=== PATIENT | female | born 1950 | race Caucasian/White ===

== ENCOUNTER → 2016-12-14 | Outpatient (CLI) | payer MEDICARE ==
--- NOTE | 2016-12-15 10:56 | MM ---
Reason for exam: screening (asymptomatic). Last mammogram was performed 12 years and 4 months ago. History: Patient is postmenopausal. Physical Findings: A clinical breast exam by your physician is recommended on an annual basis and results should be correlated with mammographic findings. MG 3D Screening Mammo W/Cad Bilateral CC and MLO view(s) were taken. No prior studies available for comparison. The breast tissue is heterogeneously dense. This may lower the sensitivity of mammography. Finding: There are typically benign round calcifications. No discrete abnormality. ASSESSMENT: Benign, BI-RAD 2 RECOMMENDATION: Routine screening mammogram of both breasts in 1 year.
== END | disposition home or self-care (01) ==
LOC: RADMAMWWP 08:55
PROVIDERS: ATTEND Family Medicine
DX: Z12.31 Encounter for screening mammogram for malignant neoplasm of breast (principal)
CPT/HCPCS: 77063; G0202

== ENCOUNTER → 2018-05-01 | Outpatient (CLI) | payer MEDICARE, OTHER ==
--- NOTE | 2018-05-02 13:35 | MM ---
Reason for exam: screening (asymptomatic). Last mammogram was performed 1 year and 5 months ago. History: Patient is postmenopausal. Physical Findings: A clinical breast exam by your physician is recommended on an annual basis and results should be correlated with mammographic findings. MG 3D Screening Mammo W/Cad Bilateral CC and MLO view(s) were taken. Prior study comparison: December 14, 2016, bilateral MG 3d screening mammo w/cad. August 04, 2004, bilateral screening mammogram. The breast tissue is heterogeneously dense. This may lower the sensitivity of mammography. Finding: There are typically benign vascular, round, linear calcifications. There is no discrete abnormality. ASSESSMENT: Benign, BI-RAD 2 RECOMMENDATION: Routine screening mammogram of both breasts in 1 year.
== END | disposition home or self-care (01) ==
LOC: RADMAMWWP 08:36
PROVIDERS: ATTEND Family Medicine
DX: Z12.31 Encounter for screening mammogram for malignant neoplasm of breast (principal)
CPT/HCPCS: 77063; 77067

== ENCOUNTER → 2019-06-21 | Outpatient (CLI) | payer MEDICARE ==
--- NOTE | 2019-06-25 10:51 | MM ---
Reason for exam: screening (asymptomatic). Last mammogram was performed 1 year and 2 months ago. History: Patient is postmenopausal. Physical Findings: A clinical breast exam by your physician is recommended on an annual basis and results should be correlated with mammographic findings. MG 3D Screening Mammo W/Cad Bilateral CC and MLO view(s) were taken. Prior study comparison: May 01, 2018, bilateral MG 3d screening mammo w/cad. December 14, 2016, bilateral MG 3d screening mammo w/cad. The breast tissue is heterogeneously dense. This may lower the sensitivity of mammography. Finding: There are typically benign vascular, round, linear calcifications. There is a chronic nodularity in the left breast. There is no discrete abnormality. ASSESSMENT: Benign, BI-RAD 2 RECOMMENDATION: Routine screening mammogram of both breasts in 1 year.
== END | disposition home or self-care (01) ==
LOC: RADMAMWWP 10:03
PROVIDERS: ATTEND Family Medicine
DX: Z12.31 Encounter for screening mammogram for malignant neoplasm of breast (principal)
CPT/HCPCS: 77063; 77067

== ENCOUNTER → 2019-07-04 | Outpatient (CLI) | payer MEDICARE ==
--- NOTE | 2019-07-05 05:05 | XR ---
EXAMINATION TYPE: XR wrist complete RT DATE OF EXAM: 07/04/2019 COMPARISON: NONE HISTORY: 68-year-old female right wrist and hand pain TECHNIQUE: 3 views FINDINGS: Mild degenerative change with marginal spurring at the first CMC joint. Severe joint space narrowing with pdfr-po-mydy articulation at the triscaphe joint. Additional moderate to advanced degenerative c hange at the first and third MCP joints with loss of joint space and joint subluxations. The radiocar pal and distal radioulnar joint as well as the midcarpal compartment otherwise appear intact. Some ul jacklyn-sided soft tissue swelling. IMPRESSION: 1. 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 2. Additional moderate degenerative change at the first and third MCP joints. 3. Ulnar-sided soft tissue swelling.
== END | disposition home or self-care (01) ==
LOC: RADXRYALE 15:59
PROVIDERS: ATTEND Physician Assistant Medical
DX: M18.11 Unilateral primary osteoarthritis of first carpometacarpal joint, right hand (principal); M19.041 Primary osteoarthritis, right hand

== ENCOUNTER 2020-08-17 10:11 | Day surgery (SDC) | payer MEDICARE ==
[~2020-08-17 10:11] MED LIST: LACTATED RINGERS 1,000 ML IV SCH
[2020-08-17] MEDS ORDERED: LIDOCAINE 1% (10MG/ML) FOR IV START INTRADERMA ONE (10:40)
[2020-08-17 10:42] VITALS: TEMP 97.9
[2020-08-17 10:49] LABS: Glucose,Whole Blood 209 mg/dL (75-99)
[2020-08-17] MEDS ORDERED: PROPOFOL 10 MG/ML 20 ML VIAL IV ONE (11:30)
--- NOTE | 2020-08-17 11:46 | P.PCN ---
Date of Procedure: 08/17/20 Procedure(s) Performed: BRIEF HISTORY: Patient is a 69-year-old pleasant white female scheduled for an elective colonoscopy as a part of positive cologuard. PROCEDURE PERFORMED: Colonoscopy. PREOPERATIVE DIAGNOSIS:Positive cologuard. IV sedation per Anesthesia. PROCEDURE: After informed consent was obtained, the patient, was brought into the endoscopy unit. IV sedation was administered by Anesthesia under continuous monitoring. Digital rectal examination was normal. Initially the Olympus CF-160 flexible video colonoscope was then inserted in the rectum, gradually advanced into the cecum without any difficulty. Careful examination was performed as the scope was gradually being withdrawn. Ileocecal valve and the appendiceal orifice were visualized and appeared normal. Prep was excellent. Mucosa of the cecum, ascending colon, transverse colon, descending colon, sigmoid colon, and rectum appeared normal. Retroflexion was performed in the rectum and no lesions were seen. The patient tolerated the procedure well. IMPRESSION: Normal-appearing colon from rectum to cecum with no evidence of colorectal neoplasia . RECOMMENDATIONS: Findings of this examination were discussed with the patient as well as a family. She was advised to have a repeat screening colonoscopy in 10 years.].
[2020-08-17 11:49] VITALS: RESP 16
[2020-08-17 12:04] VITALS: BP 133/78; PULSE 79
== END 2020-08-17 12:19 | disposition home or self-care (01) ==
LOC: ORWHC2ENDO 10:11
PROVIDERS: ATTEND Internal Medicine Gastroenterology
DX: R19.5 Other fecal abnormalities (principal); I10 Essential (primary) hypertension; E78.5 Hyperlipidemia, unspecified; E11.9 Type 2 diabetes mellitus without complications; M19.90 Unspecified osteoarthritis, unspecified site; Z88.5 Allergy status to narcotic agent; Z79.82 Long term (current) use of aspirin; Z79.84 Long term (current) use of oral hypoglycemic drugs; Z79.899 Other long term (current) drug therapy
CPT/HCPCS: 45378; J2704

== ENCOUNTER → 2020-08-26 | Outpatient (CLI) | payer MEDICARE ==
--- NOTE | 2020-08-27 10:43 | MM ---
Reason for exam: screening (asymptomatic). Last mammogram was performed 1 year and 2 months ago. History: Patient is postmenopausal. Physical Findings: A clinical breast exam by your physician is recommended on an annual basis and results should be correlated with mammographic findings. MG 3D Screening Mammo W/Cad Bilateral CC and MLO view(s) were taken. Prior study comparison: June 21, 2019, bilateral MG 3d screening mammo w/cad. May 01, 2018, bilateral MG 3d screening mammo w/cad. The breast tissue is heterogeneously dense. This may lower the sensitivity of mammography. Finding: There are typically benign vascular, round, linear calcifications. There is no discrete abnormality. ASSESSMENT: Benign, BI-RAD 2 RECOMMENDATION: Routine screening mammogram of both breasts in 1 year.
== END | disposition home or self-care (01) ==
LOC: RADMAMWWP 13:22
PROVIDERS: ATTEND Family Medicine
DX: Z12.31 Encounter for screening mammogram for malignant neoplasm of breast (principal)
CPT/HCPCS: 77063; 77067

== ENCOUNTER → 2021-07-14 | Outpatient (CLI) | payer MEDICARE ==
--- NOTE | 2021-07-14 10:44 | BD ---
EXAMINATION TYPE: Axial Bone Density DATE OF EXAM: 07/14/2021 COMPARISON: NONE CLINICAL HISTORY: Height: 5 FT 3 IN Weight: 170 FRAX RISK QUESTIONS: Alcohol (3 or more units per day): NO Family History (Parent hip fracture): YES Glucocorticoids (More than 3mos): NO (Ex: prednisone, prednisolone, methylprednisolone, dexamethasone, and hydrocortisone). History of Fracture in Adulthood: YES Secondary Osteoporosis: 1. Type 1 Diabetes: NO 2. Hyperthyroidism: NO 3. Menopause before 45: NO 4. Malnutrition: NO 5. Chronic liver disease: NO Rheumatoid Arthritis: NO Current Tobacco Use: NO RISK FACTORS HISTORY OF: Surgery to Spine/Hip(right/left)/Wrist (right/left): NO Family History of Osteoporosis: YES Active: YES Diet low in dairy products/other sources of calcium: NO Postmenopausal woman: AGE 53 Take estrogen and/or progesterone medications: NO Lost more than 2 inches in height since high school: NO MEDICATIONS: Additional Medications: REBEL SIS,METFORMIN, BLOOD PRESSURE MEDS, CHOLESTEROL MEDS , ANTI DEPRESSANT Additional History: EXAM MEASUREMENTS: Bone mineral densitometry was performed using the [employer] System. Bone mineral density as measured about the Lumbar spine is: ----- L1-L4(G/cm2): 1.444 T Score Values are as follows: ----- L2: 3.3 ----- L3: 3.3 ----- L4: 1.1 ----- L1-L4: 2.2 BASELINE Bone mineral density about the R hip (g/cm2): 0.900 Bone mineral density about the L hip (g/cm2): 0.800 T Score values are as follows: -----R Neck: -1.0 -----L Neck: -1.7 -----R Total: -1.1 -----L Total: -1.1 BASELINE IMPRESSION: Osteopenia NOTE: T-SCORE=SD OF THE YOUNG ADULT MEAN.
== END | disposition home or self-care (01) ==
LOC: RADMAMWWP 08:51
PROVIDERS: ATTEND Family Medicine
DX: Z12.31 Encounter for screening mammogram for malignant neoplasm of breast (principal); M85.80 Other specified disorders of bone density and structure, unspecified site
CPT/HCPCS: 77080

== ENCOUNTER → 2021-08-31 | Outpatient (CLI) | payer MEDICARE ==
--- NOTE | 2021-09-02 13:53 | MM ---
Reason for exam: screening (asymptomatic). Last mammogram was performed 1 year ago. History: Patient is postmenopausal. Physical Findings: A clinical breast exam by your physician is recommended on an annual basis and results should be correlated with mammographic findings. MG 3D Screening Mammo W/Cad Bilateral CC and MLO view(s) were taken. Prior study comparison: August 26, 2020, bilateral MG 3d screening mammo w/cad. June 21, 2019, bilateral MG 3d screening mammo w/cad. There are scattered fibroglandular densities. Asymmetry central right CC view is unchanged. No significant changes when compared with prior studies. ASSESSMENT: Benign, BI-RAD 2 RECOMMENDATION: Routine screening mammogram of both breasts in 1 year.
== END | disposition home or self-care (01) ==
LOC: RADMAMWWP 12:27
PROVIDERS: ATTEND Family Medicine
DX: Z12.31 Encounter for screening mammogram for malignant neoplasm of breast (principal)
CPT/HCPCS: 77063; 77067

== ENCOUNTER → 2022-07-29 | Outpatient (CLI) | payer MEDICARE ==
--- NOTE | 2022-07-29 10:35 | XR ---
EXAMINATION TYPE: XR lumbosacral spine 5 views, XR Hip Complete 2 views RT DATE OF EXAM: 07/29/2022 Comparison: None Clinical History: 71-year-old female [id number] RT SCIATICA, RT HIP PAIN Findings: LUMBAR SPINE: Moderate to advanced degenerative disc disease throughout the lumbar spine with a desiccated and narr owed disks and endplate spondylosis. Vertebral body heights are preserved and alignment is maintained . Hypertrophic facet arthropathy greatest in the mid and lower lumbar spine. No pars interarticularis defect identified. Slight degenerated levoconvex curvature centered along the upper lumbar spine. Po ssible right renal calculi measuring up to 9 mm. RIGHT HIP: There is severe degenerative change at the right hip with complete loss of superolateral cartilage an d joint space, jlqx-gu-paid abutment, extensive subchondral sclerosis and cystic change as well as ma rginal spurring. No acute fracture, subluxation, or dislocation. IMPRESSION: 1. Lumbar spine: Moderate to advanced degenerative disc disease throughout. Hypertrophic facet arthro kim mid to lower lumbar spine. No vertebral compression collapse or malalignment. Possible right re nal calculi measuring up to 9 mm. 2. Right hip: End stage, [id number] right hip OA.
== END | disposition home or self-care (01) ==
LOC: RADXRYALE 09:38
PROVIDERS: ATTEND Physician Assistant Medical
DX: M25.551 Pain in right hip (principal); M54.31 Sciatica, right side; M51.36 Other intervertebral disc degeneration, lumbar region; M16.11 Unilateral primary osteoarthritis, right hip
CPT/HCPCS: 72110; 73502

== ENCOUNTER → 2022-09-01 | Outpatient (CLI) | payer MEDICARE ==
--- NOTE | 2022-09-02 09:52 | MM ---
Reason for Exam: Screening (asymptomatic). Last screening mammogram was performed 12 month(s) ago. Patient History: Menarche at age 10. First Full-Term at age 18. Postmenopausal. Risk Values: Stormy 5 year model risk: 1.6%. NCI Lifetime model risk: 3.9%. Prior Study Comparison: 06/21/2019 Bilateral Screening Mammogram, [facility]. 08/26/2020 Bilateral Screening Mammogram, [facility]. 08/31/2021 Bilateral Screening Mammogram, [facility]. Tissue Density: The breast tissue is heterogeneously dense. This may lower the sensitivity of mammography. Findings: Analyzed By CAD. Benign-appearing calcifications. There is no suspicious group of microcalcifications or new suspicious mass in either breast. Overall Assessment: Benign, BI-RAD 2 Management: Screening Mammogram of both breasts in 1 year. A clinical breast exam by your physician is recommended on an annual basis and results should be correlated with mammographic findings. [facility] will attempt to contact patient to return for supplemental views and ultrasound if indicated. Electronically signed and approved by: Isael Vargas DO
== END | disposition home or self-care (01) ==
LOC: RADMAMWWP 09:54
PROVIDERS: ATTEND Family Medicine
DX: Z12.31 Encounter for screening mammogram for malignant neoplasm of breast (principal); Z78.0 Asymptomatic menopausal state
CPT/HCPCS: 77063; 77067

== ENCOUNTER → 2022-09-21 | Outpatient (CLI) | payer MEDICARE ==
[2022-09-21 12:47] LABS: Partial Thromboplastin Time 24.5 sec (22.0-30.0)
[2022-09-21 17:20] LABS: INR 0.9 (<1.2); Prothrombin Time 9.6 sec (9.0-12.0)
[2022-09-21 18:44] LABS: Basophils # (A) 0.08 X 10*3/uL (0.00-0.10); Basophils % (A) 1.1 %; Eosinophils # (A) 0.18 X 10*3/uL (0.04-0.35); Eosinophils % (A) 2.4 %; HCT 42.3 % (37.2-46.3); HGB 13.7 g/dL (12.0-15.0); Immature Grans, Automated 0.3 %; MCH 30.1 pg (27.0-32.0); MCHC 32.4 g/dL (32.0-37.0); Mean Platelet Volume 11.6 fL (9.5-12.2); Monocytes # (A) 0.59 X 10*3/uL (0.20-1.00); NRBC Per 100 WBC 0 /100 WBCS (0.0-0.0); Neutrophils # (A) 4.82 X 10*3/uL (1.80-7.70); Neutrophils % (A) 65.2 %; Platelet Count 321 X 10*3/uL (140-440); RBC 4.55 X 10*6/uL (4.10-5.20); RDW 11.9 % (11.5-14.5); WBC 7.39 X 10*3/uL (4.50-10.00)
[2022-09-21 21:05] LABS: Appearance,Urine Cloudy (Clear); Bilirubin,Urine Negative (Negative); Blood,Urine Negative (Negative); Color,Urine Yellow (Yellow); Ketones,Urine Negative (Negative); Nitrite,Urine Positive (Negative); PH, Urine 7.5 (5.0-8.0); Specific Gravity,Urine 1.006 (1.001-1.030); Urobilinogen,Urine 0.2 (0.2,1.0)
[2022-09-21 21:15] LABS: Bacteria,Urine 4+ /HPF (None Seen)
[2022-09-21 22:02] LABS: African American GFR (CKD) 85.3 (60.0-200.0); Albumin 4.9 g/dL (3.8-4.9); Albumin/Globulin Ratio 2.34 (1.60-3.17); Anion Gap 14.9 mmol/L (10.00-18.00); BUN/Creat Ratio 12.69 Ratio (12.00-20.00); Blood Urea Nitrogen 10.1 mg/dL (9.0-27.0); Calcium 10.3 mg/dL (8.7-10.3); Carbon Dioxide 26.2 mmol/L (20.0-27.5); Globulin 2.1 g/dL (1.6-3.3); Non-African American GFR(CKD) 73.6 (60.0-200.0); Potassium 5.1 mmol/L (3.5-5.5); Total Bilirubin 0.4 mg/dL (0.30-1.20)
== END | disposition home or self-care (01) ==
LOC: LABPAT 11:15
PROVIDERS: ATTEND Orthopaedic Surgery
DX: Z01.812 Encounter for preprocedural laboratory examination (principal)
CPT/HCPCS: 80053; 81001; 85025; 85610; 85730; 87070

== ENCOUNTER 2022-10-03 05:34 | Day surgery (SDC) | payer MEDICARE ==
[~2022-10-03 05:34] MED LIST changes: +ACETAMINOPHEN TAB 500 MG TAB PO PRN; +GABAPENTIN 300 MG CAP PO PRN; -LACTATED RINGERS 1,000 ML IV SCH; +MELOXICAM 7.5 MG TAB PO PRN; +TRANEXAMIC ACID IN NACL,ISO-OS 1,000 MG in SALINE 1 100ML.BAG IVPB PRN
[2022-10-03] MEDS ORDERED: LACTATED RINGERS 1,000 ML IV ONE ×2 (05:59→09:48)
[2022-10-03] MEDS ORDERED: LIDOCAINE 1% (10MG/ML) FOR IV START INTRADERMA PRN (06:00)
[2022-10-03] MEDS ORDERED: ONDANSETRON 4 MG/2 ML VIAL IVP ONE (06:00)
[2022-10-03] MEDS ORDERED: MIDAZOLAM 2 MG/2 ML VIAL IV PRN (06:00)
[2022-10-03] MEDS ORDERED: HYDROmorphone 0.5 MG/0.5 ML SYRINGE IVP PRN ×3 (06:00→08:26)
[2022-10-03] MEDS ORDERED: DEXAMETHASONE SOD PHOSPHATE 4 MG/ML 1 ML VIAL IV ONE (06:00)
[2022-10-03 06:29] LABS: Glucose,Whole Blood 143 mg/dL (70-110)
[2022-10-03] MEDS ORDERED: TRANEXAMIC ACID IN NACL,ISO-OS 1,000 MG/100 ML BAG ONE (06:54)
[2022-10-03] MEDS ORDERED: PROPOFOL 10 MG/ML 20 ML VIAL IV ONE (06:54)
[2022-10-03] MEDS ORDERED: ePHEDrine 50 MG/ML 1 ML VIAL ONE (06:54)
[2022-10-03] MEDS ORDERED: MIDAZOLAM 2 MG/2 ML VIAL ONE (06:54)
[2022-10-03] MEDS ORDERED: PHENYLEPHRINE-0.9% NACL SYG 1,000 MCG/10 ML SYRINGE ONE (06:54)
[2022-10-03] MEDS ORDERED: fentaNYL (PF) 50 MCG/ML 2 ML AMP ONE (06:54)
[2022-10-03] MEDS ORDERED: ceFAZolin 1,000 MG in SODIUM CHLORIDE 0.9% 1,000 ML IRRIGATION ONE (06:59)
[2022-10-03] MEDS ORDERED: ROPIVACAINE 5 MG/ML 30 ML VIAL MISCELLANE ONE ×2 (07:05→08:02)
--- NOTE | 2022-10-03 08:10 | P.OP ---
Date of Procedure: 10/03/22 Preoperative Diagnosis: Severe Osteoarthritis right hip Postoperative Diagnosis: Severe osteoarthritis right hip Procedure(s) Performed: Right total hip arthroplasty with a direct anterior approach Implants: [employer] Polarstem standard size 2 [employer] R3, 3 hole hemispherical acetabular shell, 48 mm [employer] Reflection 6.5 mm cancellus screw, 20 mm, 25 mm [employer] R3, XLPE 20 acetabular liner [employer] Oxinium femoral head 32 m, +0 All components were press-fit. The articulation is Oxinium on polyethylene. Anesthesia: spinal Surgeon: Gerald Christian Filling Carrier #1: Kacy Grande Estimated Blood Loss (ml): 400 Pathology: other (Femoral head) Condition: stable Disposition: PACU Indications for Procedure: After failure of conservative treatment we discussed the surgical and nonsu rgical treatment options at length. Patient wishes to proceed with a total hip arthroplasty with a direct anterior approach. Complications specific to this procedure were discussed at length, including but not limited to infection, leg length discrepancy, dislocation, nerve injury, and fracture. Covid-19 was also discussed at length with the patient, and they are aware of the current policies and procedures. The patient was given the option of delaying surgery, but they elect to proceed knowing these risks. Patient is aware of all these complications and informed consent was obtained Operative Findings: The operative findings are consistent with severe osteoarthritis of the right hip Description of Procedure: Patient was seen and evaluated in the preoperative area and the consent was reviewed. The operative site was marked with a skin marker. The patient was then brought to the operating room and given preoperative antibiotics intravenously. 1 g of Tranexamic acid was also given intravenously. A spinal anesthetic was administered by the anesthesia department. The patient was then placed on the [place] table with the bony prominences well-padded. The hip area was then prepped with a ChloraPrep solution and draped in the usual sterile fashion. A universal timeout was then performed, which confirmed the patient's name, surgical site, ALLERGIES, and procedure being performed on the consent. Next the incision site was located at 1 cm distal and 2 cm lateral to the anterior superior iliac spine. The skin and subcutaneous tissues were sharply incised. Incision was carefully dissected down to the fascia overlying the tensor fascia pablito muscle. This fascia was then incised in line with the incision. Care was taken to stay laterally in order to avoid injuring the lateral femoral cutaneous nerve. Next, using blunt finger dissection, the tensor fascia pablito muscle was dissected off its investing fascia. The muscle was then carefully retracted laterally with a cobra retractor over the lateral neck of the femur. Next, the circumflex vessels were identified and cauterized using the AquaMantis device. The anterior hip capsule was then exposed. The capsule was then opened and an inverted T fashion. Cobra retractors were then placed intracapsularly. The retractors were maintained intracapsular throughout the procedure. The proximal femur was then visualized. Fluoroscopic x-rays were then taken in order to evaluate the preoperative leg lengths. A small amount of traction was placed on the leg. The femoral neck was then osteotomized at the appropriate level above the lesser trochanter. A small wedge of bone was then removed from the remaining femoral head. Next, using a corkscrew the femoral head was removed from the acetabulum. On gross visual inspection, the femoral head had complete loss of articular cartilage and multiple periarticular osteophytes. The femoral head was then me asured. Attention was then turned to the acetabulum. The acetabulum was exposed and any remaining labrum was excised. Sequential reaming of the acetabulum was performed using fluoroscopic guidance until there was a good bed of bleeding cancellus bone. When the appropriate size was reached, a trial was then placed. The position and fit of the trial was checked with fluoroscopy. The trial was then removed. Then, using fluoroscopic guidance, the final implant was impacted at 20 of anteversion and 40 of abduction, and fully seated in the acetabulum. 2 screws were then placed in the acetabulum. Again fluoroscopy was used to check position of the screws. Next, the liner was then impacted, with a 20 elevated liner located in the anterior superior quadrant. Component locking was confirmed. Attention was then directed to the femur. With the aid of the [place] table, the femur was externally rotated to approximately 130, extended, and adducted under the opposite leg. A side hook was then placed under the proximal femur, and the side hook elevator was used to elevate the proximal femur while releasing the capsule. Retractors were then placed. A capsular release was performed, as well as a release of the conjoined tendon, which afforded excellent visualization of the proximal femur. Next, a box osteotome was used to lateralize the proximal femur. A teacher of the handicapped was then used to locate the femoral canal. Sequential broaching was then performed with appropriate size which afforded excellent fixation in the proximal femur. A trial was then placed with appropriate head and neck, and the hip was gently reduced with the aid of the [place] table. Fluoroscopy was then used to check position of the components, as well as to evaluate the leg lengths and offset. The leg lengths and offset were measured as closely as possible to ensure stability of the hip. The hip was then gently dislocated and the trials were then removed. Final implants were then impacted and the hip was again reduced. Final fluoroscopic x-rays confirmed that the components were in anatomic position. The leg lengths and offset were measured and were found to coincide with the trial measurements. The hip was also taken through range of motion, and found to be stable. The hip was then copiously irrigated with antibiotic solution with pulsatile lavage. The hip was then irrigated with Irrisept solution. The soft tissues were then injected with a ropivacaine solution. A second dose of 1 g of Tranexamic acid was also given intravenously. The fascia was then closed with 2-0 strata fix suture. The subcutaneous tissue was closed with 3-0 Vicryl. The subcuticular tissue was closed with 3-0 strata fix suture. The skin was then closed with Exofin skin glue. After the glue and dried, and Optifoam silver impregnated dressing was applied. The patient was then transferred to the recovery room in stable condition. The judicial administrative assistant EVIE Marie was required due to the complexity of surgery, and the need for skilled surgical first assistant for positioning, draping, exposure, retraction, and closure of the wound.
[2022-10-03] MEDS ORDERED: MAGNESIUM HYDROXIDE 2,400 MG/10 ML CUP PO PRN (08:26)
[2022-10-03] MEDS ORDERED: ONDANSETRON 4 MG/2 ML VIAL IVP PRN (08:26)
[2022-10-03] MEDS ORDERED: NALOXONE 0.4 MG/ML 1 ML VIAL IV PRN (08:26)
[2022-10-03] MEDS ORDERED: HYDROcodone/APAP 7.5-325MG 1 EACH TAB PO PRN (08:28)
[2022-10-03 09:01] LABS: Glucose,Whole Blood 245 mg/dL (70-110)
--- NOTE | 2022-10-03 09:54 | FL ---
Fluoroscopy INDICATION: Pain FINDINGS: Fluoroscopy time: 55 seconds. Images obtained: 0. IMPRESSIONS: 1. Documentation of fluoroscopy.
--- NOTE | 2022-10-03 09:54 | XR ---
Fluoroscopy INDICATION: Pain FINDINGS: Fluoroscopy time: 55 seconds. Images obtained: 6. IMPRESSIONS: 1. Documentation of fluoroscopy.
--- NOTE | 2022-10-03 09:58 | XR ---
EXAMINATION TYPE: XR Hip Limited RT DATE OF EXAM: 10/03/2022 COMPARISON: 07/29/2022 HISTORY: Post right hip surgery TECHNIQUE: AP right hip FINDINGS: Femoral and acetabular components of the place. No acute fractures are evident post prosthe sis placement. Soft tissue postsurgical changes are evident. IMPRESSION: 1. No acute fracture post right hip replacement.
[2022-10-03] MEDS: HYDROmorphone 0.5 MG/0.5 ML SYRINGE IVP PRN ×3 (10:13→18:24)
[2022-10-03] MEDS ORDERED: LORATADINE 10 MG TAB PO PRN (11:10)
[2022-10-03] MEDS ORDERED: DEXTROSE 50% SYRINGE 50 ML IVP PRN ×2 (11:15)
--- NOTE | 2022-10-03 11:18 | P.CONS ---
History of Present Illness - Reason for Consult Consult date: 10/03/22 Medical management Requesting physician: Gerald Christian - History of Present Illness History of Presenting Illness: Patient is a very pleasant 72-year-old female with a past medical history including hypertension, hyperlipidemia, type II vof-fsozomc-aeyovvily diabetes mellitus, and osteoarthritis. She is currently admitted under orthopedic surgery team status post an elective right total hip arthroplasty secondary to severe osteoarthritis of her right hip. We have been consulted for medical management throughout patient's hospitalization. Patient seen and fully evalua anthony at bedside upon arrival to room from OR. She reports currently in postoperative pain is controlled, but she can feels that it is starting to flare up a bit and states ice pack was just changed out. She denies having any postoperative nausea or vomiting and has yet to urinate since operation was completed. Patient denies having any other pain or complaints at this time including headache, lightheadedness, dizziness, chest pain, palpitations, shortness of breath, abdominal pain, or experiencing any numbness/tingling/weakness in her extremities. Patient denies history of DVT or PE. Review of systems: Pertinent positives and negatives as discussed in HPI, a complete review of systems was performed and all other systems are negative. Physical exam: Vital signs reviewed and stable. General: Nontoxic, no distress and appears stated age. Derm: Skin warm and dry, normal coloration for ethnicity. Postoperative dressing in place to right lateral hip with ice packs covering. Head: Atraumatic, normocephalic and symmetric. Eyes: EOMs intact, no lid lag, and anicteric sclera Mouth: no lip lesions, mucus membranes moist Cardiovascular: regular rate and rhythm with normal S1S2, no murmur, positive posterior tibial pulses bilaterally, and cap refill < 2 seconds. Lungs: Respirations even, regular, and unlabored on room air. Lungs CTA bilaterally, no rhonchi, no rales, no wheezing, and no accessory muscle usage. Abdominal: soft, nontender to palpation, no guarding, no appreciable organomegaly Ext: ROM intact. No gross muscle atrophy, no edema, no contractures Neuro: Speech clear, face symmetrical and CN II-XII grossly intact with no noted focal neuro deficits Psych: Alert and oriented to person, place, time, and situation. Appropriate and pleasant affect. Assessment and Plan of Care: Status post right total hip arthroplasty -Management per primary admitting orthopedic surgery team including DVT prophylaxis, pain management, wound/dressing/drain management, weightbearing, and PT/OT. -Patient currently on DVT prophylaxis with aspirin. Hypertension -Monitor vital signs and continue daily medication regimen with losartan/hydrochlorothiazide. Hyperlipidemia -Continue daily medication regimen with pravastatin 20 mg nightly. -Continue heart healthy and carb consistent diet. Type II [id number] diabetes mellitus -Hold semiglutide and metformin and place patient on glycemic protocol with NovoLog sliding scale to maintain tight glycemic control throughout hospitalization. Thank you for allowing us to participate in the care of this pleasant patient. Do not hesitate to contact us with questions. Someone can be reached from the [facility] hospitalist group all hours of the day at [phone] or via [employer]. Tani Rudolph NP rendered care for this patient independently, reviewed the findings and plan as documented in the note above. I did not physically speak with or examine the patient on this date. Past Medical History Past Medical History: Diabetes Mellitus, Hyperlipidemia, Hypertension, Osteoarthritis (OA) Additional Past Medical History / Comment(s): just finished A/B for UTI ordered by surgeon office History of Any Multi-Drug Resistant Organisms: MRSA Year Discovered:: 2009 MDRO Source:: left upper thigh Past Surgical History: Orthopedic Surgery, Tonsillectomy Additional Past Surgical History / Comment(s): D&C, left thumb basal joint replaced, colonoscopy Past Anesthesia/Blood Transfusion Reactions: No Reported Reaction Past Psychological History: Anxiety, Depression Smoking Status: Never smoker Past Alcohol Use History: None Reported Past Drug Use History: None Reported - Past Family History Mother Family Medical History: No Reported History Medications and Allergies Home Medications Medication Instructions Recorded Confirmed Type Aspirin 325 mg PO DAILY 08/14/20 09/29/22 History Cetirizine HCl [Zyrtec] 10 mg PO DAILY PRN 08/14/20 10/03/22 History Cholecalciferol [Vitamin D3 (25 1,000 unit PO DAILY 08/14/20 09/29/22 History Mcg = 1000 Iu)] Citalopram Hydrobromide 20 mg PO DAILY 08/14/20 10/03/22 History [Citalopram HBr] Ferrous Sulfate [Feosol] 325 mg PO DAILY 08/14/20 09/29/22 History Niacin [Niaspan] 1,000 mg PO DAILY 08/14/20 10/03/22 History Pravastatin Sodium [Pravachol] 20 mg PO HS 08/14/20 10/03/22 History buPROPion HCL [Wellbutrin SR] 75 mg PO BID 08/14/20 09/29/22 History metFORMIN HCL [Glucophage] 1,000 mg PO BID 08/14/20 10/03/22 History Calcium Carbonate/Vitamin D3 1 each PO DAILY 09/29/22 09/29/22 History [Calcium 600 mg-D3 10 Mcg (400 Iu)] Losartan/Hydrochlorothiazide 1 tab PO DAILY 09/29/22 09/29/22 History [Losartan-Hctz 100-12.5 mg Tab] Semaglutide [Rybelsus] 7 mg PO DAILY 09/29/22 10/03/22 History Aspirin 325 mg PO BID #60 tab 10/03/22 Rx HYDROcodone/APAP 7.5-325MG [[place] 1 - 2 tab PO Q6H PRN #32 tab 10/03/22 Rx 7.5-325] Sennosides [Senokot] 2 tab PO DAILY PRN #60 tablet 10/03/22 Rx Allergies Allergy/AdvReac Type Severity Reaction Status Date / Time codeine AdvReac "headache Verified 10/03/22 05:54 and very sleepy" Physical Exam Osteopathic Statement: *. No significant issues noted on an osteopathic structural exam other than those noted in the History and Physical/Consult. Vitals: Vital Signs Temp Pulse Resp BP BP Pulse Ox 10/03/22 09:45 98 16 131/68 99 10/03/22 09:15 96 18 130/59 96 10/03/22 09:00 97 18 124/58 99 10/03/22 08:45 99 18 124/59 98 10/03/22 08:30 100.4 F H 110 H 18 117/59 97 10/03/22 05:57 97.2 F L 86 18 132/66 99 Intake and Output 10/02/22 10/03/22 10/03/22 22:59 06:59 14:59 Intake Total 551 450 Output Total 400 Balance 551 50 Intake: IV 551 450 Output: Estimated Blood Loss 400 Other: Weight 70.1 kg 70.1 kg Results Labs: Abnormal Lab Results - Last 24 Hours (Table) 10/03/22 10/03/22 Range/Units 06:23 09:00 POC Glucose (mg/dL) 143 H 245 H (70-110) mg/dL
[2022-10-03 11:56] LABS: Glucose,Whole Blood 219 mg/dL (70-110)
[2022-10-03] MEDS: INSULIN ASPART (NovoLOG) 100 UNIT/ML VIAL SQ SCH ×3 (12:08→21:51)
[2022-10-03] MEDS: FERROUS SULFATE 325 MG TAB PO SCH (12:08)
[2022-10-03] MEDS: HYDROcodone/APAP 7.5-325MG 1 EACH TAB PO PRN (12:14)
[2022-10-03 14:51] VITALS: RESP 18
[2022-10-03] MEDS: CITALOPRAM HYDROBROMIDE 20 MG TAB PO SCH (15:27)
[2022-10-03] MEDS: hydroCHLOROthiazide 12.5 MG CAP PO SCH (15:27)
[2022-10-03] MEDS: buPROPion 75 MG TAB PO SCH ×2 (15:27→21:51)
[2022-10-03] MEDS: LOSARTAN 50 MG TAB PO SCH (15:27)
[2022-10-03] MEDS: LACTATED RINGERS 1,000 ML IV SCH (15:28)
[2022-10-03 16:51] LABS: Glucose,Whole Blood 184 mg/dL (70-110)
[2022-10-03] MEDS: SODIUM CHLORIDE 0.9% 1,000 ML IV SCH ×2 (19:41→23:19)
[2022-10-03 20:20] LABS: Glucose,Whole Blood 196 mg/dL (70-110)
[2022-10-03] MEDS ORDERED: SENNOSIDES-DOCUSATE SODIUM 1 EACH TAB PO SCH (21:00)
[2022-10-03] MEDS ORDERED: PRAVASTATIN SODIUM 20 MG TAB PO SCH (21:00)
[2022-10-03] MEDS: ASPIRIN 325 MG TAB PO SCH (21:50)
[2022-10-04] MEDS: LACTATED RINGERS 1,000 ML IV SCH (00:51)
[2022-10-04 05:57] LABS: Glucose,Whole Blood 229 mg/dL (70-110)
[2022-10-04] MEDS: INSULIN ASPART (NovoLOG) 100 UNIT/ML VIAL SQ SCH (06:35)
[2022-10-04] MEDS: HYDROcodone/APAP 7.5-325MG 1 EACH TAB PO PRN (07:05)
[2022-10-04 07:28] VITALS: BP 118/72; PULSE 91; TEMP 98.2
[2022-10-04] MEDS: LOSARTAN 50 MG TAB PO SCH (08:31)
[2022-10-04] MEDS: FERROUS SULFATE 325 MG TAB PO SCH (08:31)
[2022-10-04] MEDS: CITALOPRAM HYDROBROMIDE 20 MG TAB PO SCH (08:31)
[2022-10-04] MEDS: ASPIRIN 325 MG TAB PO SCH (08:31)
[2022-10-04] MEDS: hydroCHLOROthiazide 12.5 MG CAP PO SCH (08:31)
[2022-10-04] MEDS: buPROPion 75 MG TAB PO SCH (08:31)
[2022-10-04] MEDS ORDERED: NIACIN TR 500 MG CAPLET PO SCH (09:00)
[2022-10-04] MEDS ORDERED: CHOLECALCIFEROL 25 MCG (1000 IU) TABLET PO SCH (09:00)
[2022-10-04 09:08] LABS: Basophils # (A) 0.04 X 10*3/uL (0.00-0.10); Basophils % (A) 0.5 %; Eosinophils # (A) 0.06 X 10*3/uL (0.04-0.35); Eosinophils % (A) 0.7 %; HCT 30.1 % (37.2-46.3); HGB 9.8 g/dL (12.0-15.0); Immature Grans, Automated 0.5 %; Lymphocytes # (A) 1.37 X 10*3/uL (0.90-5.00); Lymphocytes % (A) 16.2 %; MCH 31.1 pg (27.0-32.0); MCHC 32.6 g/dL (32.0-37.0); MCV 95.6 fL (80.0-97.0); Mean Platelet Volume 11.9 fL (9.5-12.2); Monocytes # (A) 0.93 X 10*3/uL (0.20-1.00); NRBC Per 100 WBC 0 /100 WBCS (0.0-0.0); Neutrophils # (A) 6.01 X 10*3/uL (1.80-7.70); Neutrophils % (A) 71.1 %; Platelet Count 258 X 10*3/uL (140-440); RBC 3.15 X 10*6/uL (4.10-5.20); RDW 11.8 % (11.5-14.5); WBC 8.45 X 10*3/uL (4.50-10.00)
[2022-10-04] MEDS: HYDROmorphone 0.5 MG/0.5 ML SYRINGE IVP PRN (09:55)
--- NOTE | 2022-10-04 10:59 | P.DS ---
Providers Expected date of discharge: 10/04/22 Attending physician: Gerald Christian Consults: 10/03/22 08:26 Consult Physician Routine Consulting Provider: Vianca Dietrich Consult Reason/Comments: medical management Do you want consulting provider notified?: Yes Primary care physician: Gerald Holloway - Discharge Diagnosis(es) (1) Osteoarthritis of right hip Current Visit: Yes Status: Acute (2) S/P total hip arthroplasty Current Visit: Yes Status: Acute Hospital Course: This is a 72-year-old female with known history of degenerative arthritis of the right hip. The patient presented for evaluation as an outpatient. After discussion and consideration patient elects to proceed with total hip arthroplasty. The patient is seen preoperatively by Dr. Christian and medically cleared for surgery by their primary care physician. Patient is admitted to [facility] on 10/03/2022 for total hip arthroplasty. The procedure is performed without complication or sequelae. The patient is doing well postoperatively. Labs and vital signs are stable on day of discharge. On day of discharge patient's hip incision is healing well. There is minimal erythema. There is no drainage noted at this time. There is minimal soft tissue swelling to the hip and thigh. Patient has full foot and ankle motion without difficulty or pain. Calf is soft and nontender to palpation. Neurovascular status to the right lower extremity is intact. Patient is discharged home in good condition. Please see med rec for accurate list of home medications. Plan - Discharge Summary Discharge Rx Participant: Yes New Discharge Prescriptions: New HYDROcodone/APAP 7.5-325MG [[place] 7.5-325] 1 - 2 tab PO Q6H PRN #32 tab PRN Reason: Pain Sennosides [Senokot] 2 tab PO DAILY PRN #60 tablet PRN Reason: Constipation Aspirin 325 mg PO BID #60 tab Continue Ferrous Sulfate [Iron (65 MG Elemental)] 325 mg PO DAILY Cholecalciferol [Vitamin D3 (25 Mcg = 1000 Iu)] 1,000 unit PO DAILY Cetirizine HCl [Zyrtec] 10 mg PO DAILY PRN PRN Reason: allergies Pravastatin Sodium [Pravachol] 20 mg PO HS buPROPion HCL [Wellbutrin SR] 75 mg PO BID metFORMIN HCL [Glucophage] 1,000 mg PO BID Niacin [Niaspan] 1,000 mg PO DAILY Citalopram Hydrobromide [Citalopram HBr] 20 mg PO DAILY Losartan/Hydrochlorothiazide [Losartan-Hctz 100-12.5 mg Tab] 1 tab PO DAILY Semaglutide [Rybelsus] 7 mg PO DAILY Calcium Carbonate/Vitamin D3 [Calcium 600 mg-D3 10 Mcg (400 Iu)] 1 each PO DAILY No Action Aspirin 325 mg PO DAILY Discharge Medication List Aspirin 325 mg PO DAILY 08/14/20 [History] Cetirizine HCl [Zyrtec] 10 mg PO DAILY PRN 08/14/20 [History] Cholecalciferol [Vitamin D3 (25 Mcg = 1000 Iu)] 1,000 unit PO DAILY 08/14/20 [History] Citalopram Hydrobromide [Citalopram HBr] 20 mg PO DAILY 08/14/20 [History] Ferrous Sulfate [Iron (65 MG Elemental)] 325 mg PO DAILY 08/14/20 [History] Niacin [Niaspan] 1,000 mg PO DAILY 08/14/20 [History] Pravastatin Sodium [Pravachol] 20 mg PO HS 08/14/20 [History] buPROPion HCL [Wellbutrin SR] 75 mg PO BID 08/14/20 [History] metFORMIN HCL [Glucophage] 1,000 mg PO BID 08/14/20 [History] Calcium Carbonate/Vitamin D3 [Calcium 600 mg-D3 10 Mcg (400 Iu)] 1 each PO DAILY 09/29/22 [History] Losartan/Hydrochlorothiazide [Losartan-Hctz 100-12.5 mg Tab] 1 tab PO DAILY 09/29/22 [History] Semaglutide [Rybelsus] 7 mg PO DAILY 09/29/22 [History] Aspirin 325 mg PO BID #60 tab 10/03/22 [Rx] HYDROcodone/APAP 7.5-325MG [[place] 7.5-325] 1 - 2 tab PO Q6H PRN #32 tab 10/03/22 [Rx] Sennosides [Senokot] 2 tab PO DAILY PRN #60 tablet 10/03/22 [Rx] Follow up Appointment(s)/Referral(s): Residential Home,Health [NON-STAFF] - As Needed (AGENCY WILL CONTACT YOU.) Gerald Christian DO [Doctor of Osteopathic Medicine] - 10/14/22 2:15 pm Gerald Holloway DO [Primary Care Provider] - 1 Week (Phone busy signal. Please call to schedule appointment ) Patient Instructions/Handouts: Hydrocodone/Acetaminophen (By mouth), Aspirin (By mouth), Senna (By mouth), Anterior Hip Replacement (DC) Activity/Diet/Wound Care/Special Instructions: Weightbearing as tolerated with walker. Leave dressing intact. Dressing may be removed by home care nurse or by patient in 7 days. Then change dressing twice daily until follow up. May shower with initial dressing intact and after removal. If dressing become saturated, please remove. Please take aspirin 325mg twice daily for 30 days to prevent blood clots. Recommend use of compression stockings daily until follow up to help prevent swelling and blood clots. May remove at night before sleeping. Please follow-up with [facility] in 2 weeks and call with any questions or concerns, . Discharge Disposition: HOME WITH HOME HEALTH SERVICES
--- NOTE | 2022-10-04 11:41 | P.PN ---
Subjective Progress Note Date: 10/04/22 Principal diagnosis: med management Subjective: She is seen and examined at bedside. No acute events overnight. She claims that she has minimal pain in her right hip. She denies any chest pain, shortness of breath, abdominal pain, urinary or bowel complaints. Pertinent positives and negatives as discussed above, a complete review of systems was performed and all other systems are negative. Vitals Signs Reviewed. General: nontoxic, no distress, appears at stated age Derm: warm, dry, right hip dressing clean dry and intact Head: atraumatic, normocephalic, symmetric Eyes: EOMI, no lid lag, anicteric sclera Mouth: no lip lesion, mucus membranes moist Cardiovascular: S1S2 reg, no murmur Lungs: CTA bilateral, no rhonchi, no rales , no accessory muscle use Abdominal: soft, nontender to palpation, no guarding, no appreciable organomegaly Ext: no gross muscle atrophy, no edema, no contractures Neuro: CN II-XI grossly intact, no focal neuro deficits Psych: Alert, oriented, appropriate affect Assessment and Plan: Status post right total hip arthroplasty -Management per orthopedic surgery -DVT prophylaxis, pain management, PT/OT Hypertension Dyslipidemia Jen-svveuet-uijgejaub diabetes -Resume home medication at discharge Patient medically optimized for discharge home. Patient will see her PCP in 1 week for further optimization of her sugars. She will continue to check her blood sugar twice daily. Thank you for allowing us to participate in the care of this pleasant patient. Do not hesitate to contact us with questions. Someone can be reached from the [facility] hospitalist group all hours of the day at [phone] or via [employer]. Objective - Vital Signs Vital signs: Vital Signs Temp 98.2 F 10/04/22 07:27 Pulse 91 10/04/22 07:27 Resp 18 10/04/22 07:27 BP 118/72 10/04/22 07:27 Pulse Ox 95 10/04/22 07:27 FiO2 Intake & Output 10/03/22 10/04/22 10/04/22 18:59 06:59 18:59 Intake Total 500 Output Total 400 Balance 100 Weight 70.1 kg Intake: IV 450 Intake, IV Titration 50 Amount ceFAZolin 2 gm In Sodium 50 Chloride 0.9% 50 ml @ 100 mls/hr IVPB Q8H [facility] Rx#: [id number] Output: Estimated Blood Loss 400 Other: # Voids 2 - Labs CBC & Chem 7: 10/04/22 05:46 Labs: Abnormal Lab Results - Last 24 Hours (Table) 10/03/22 10/03/22 10/03/22 Range/Units 11:55 16:48 20:18 RBC (4.10-5.20) X 10*6/uL Hgb (12.0-15.0) g/dL Hct (37.2-46.3) % POC Glucose (mg/dL) 219 H 184 H 196 H (70-110) mg/dL 10/04/22 10/04/22 Range/Units 05:46 05:55 RBC 3.15 L (4.10-5.20) X 10*6/uL Hgb 9.8 L (12.0-15.0) g/dL Hct 30.1 L (37.2-46.3) % POC Glucose (mg/dL) 229 H (70-110) mg/dL
== END 2022-10-04 11:13 | disposition home health service (06) ==
LOC: OR 05:34 → 4SSUR 08:19 → OR 10-04 11:13
PROVIDERS: ATTEND Orthopaedic Surgery
DX: M16.11 Unilateral primary osteoarthritis, right hip (principal); I10 Essential (primary) hypertension; E11.9 Type 2 diabetes mellitus without complications; E78.5 Hyperlipidemia, unspecified; F41.8 Other specified anxiety disorders; Z87.440 Personal history of urinary (tract) infections; Z90.89 Acquired absence of other organs; Z98.890 Other specified postprocedural states; Z79.82 Long term (current) use of aspirin; Z79.899 Other long term (current) drug therapy; Z79.1 Long term (current) use of non-steroidal anti-inflammatories (NSAID); Z88.5 Allergy status to narcotic agent; Z79.84 Long term (current) use of oral hypoglycemic drugs
CPT/HCPCS: 97161; 86900; 86901; 86850; 73501; 27130; C1776; J1100; J0690 ×2; J2405; J2795; J1170; 85025; 88300

== ENCOUNTER → 2023-09-04 | Outpatient (CLI) | payer MEDICARE ==
--- NOTE | 2023-09-05 19:24 | MM ---
Reason for Exam: Screening (asymptomatic). Last screening mammogram was performed 12 month(s) ago. Patient History: Menarche at age 10. First Full-Term at age 18. Postmenopausal. Risk Values: Stormy 5 year model risk: 1.6%. NCI Lifetime model risk: 3.7%. Prior Study Comparison: 08/26/2020 Bilateral Screening Mammogram, [facility]. 08/31/2021 Bilateral Screening Mammogram, [facility]. 09/01/2022 Bilateral MG 3D screening mammo w/cad, [facility]. Tissue Density: There are scattered fibroglandular densities. Findings: Analyzed By CAD. Bilateral benign calcifications are redemonstrated. There is no suspicious group of microcalcifications or new suspicious mass in either breast. Overall Assessment: Benign, BI-RAD 2 Management: Screening Mammogram of both breasts in 1 year. . Patient should continue monthly self-breast exams. A clinical breast exam by your physician is recommended on an annual basis. This exam should not preclude additional follow-up of suspicious palpable abnormalities. Note on Stormy scores and lifetime risk: 1. A Stormy score greater than 3% is considered moderate risk. If this is the case, consider specialist referral to assess eligibility for a risk reducing agent. 2. If overall lifetime risk for the development of breast cancer is 20% or higher, the patient may qualify for future screening with alternating mammogram and breast MRI. Electronically signed and approved by: Benny Gleason M.D. Radiologist
== END | disposition home or self-care (01) ==
LOC: RADMAMWWP 15:16
PROVIDERS: ATTEND Family Medicine
DX: Z12.31 Encounter for screening mammogram for malignant neoplasm of breast (principal); Z78.0 Asymptomatic menopausal state
CPT/HCPCS: 77063; 77067

== ENCOUNTER → 2024-09-18 | Outpatient (CLI) | payer MEDICARE ==
--- NOTE | 2024-09-19 19:04 | MM ---
Reason for Exam: Screening (asymptomatic). Last mammogram was performed 1 year(s) and 1 month(s) ago. Patient History: Menarche at age 10. First Full-Term at age 18. Postmenopausal. Risk Values: Stormy 5 year model risk: 1.6%. NCI Lifetime model risk: 3.4%. Prior Study Comparison: 08/31/2021 Bilateral Screening Mammogram, [facility]. 09/01/2022 Bilateral MG 3D screening mammo w/cad, [facility]. 09/04/2023 Bilateral MG 3D screening mammo w/cad, [facility]. Tissue Density: There are scattered areas of fibroglandular density. Findings: Analyzed By CAD. Benign bilateral oil cyst, secretory, and vascular calcifications. Central asymmetric density right cc view middle depth does not persist on 3-D images. There is no suspicious group of microcalcifications or new suspicious mass in either breast. Overall Assessment: Benign, BI-RAD 2 Management: Screening Mammogram of both breasts in 1 year. Patient should continue monthly self-breast exams. A clinical breast exam by your physician is recommended on an annual basis. This exam should not preclude additional follow-up of suspicious palpable abnormalities. Note on Stormy scores and lifetime risk: 1. A Stormy score greater than 3% is considered moderate risk. If this is the case, consider specialist referral to assess eligibility for a risk reducing agent. 2. If overall lifetime risk for the development of breast cancer is 20% or higher, the patient may qualify for future screening with alternating mammogram and breast MRI. [facility], , 09/19/2024 7:02 PM. Electronically signed and approved by: Benny Gleason M.D. Radiologist
== END | disposition home or self-care (01) ==
LOC: RADMAMWWP 13:53
PROVIDERS: ATTEND Family Medicine
DX: Z12.31 Encounter for screening mammogram for malignant neoplasm of breast (principal); Z78.0 Asymptomatic menopausal state; R92.323 Mammographic fibroglandular density, bilateral breasts
CPT/HCPCS: 77063; 77067